=== PATIENT | male | born 1940 ===

== ENCOUNTER 2023-03-22 07:44 | Inpatient (IN) | payer OTHER ==
[~2023-03-22] VITALS: Ht 165.1 cm; Wt 70.8 kg
[2023-03-23] MEDS ORDERED: PROSCAR5 MG PO (14:50)
[2023-03-23] MEDS ORDERED: COZAAR50 MG PO (14:50)
[2023-03-23] MEDS ORDERED: ZOCOR40 MG PO (14:50)
[2023-03-23] MEDS ORDERED: LEVO-T75 MCG PO (14:50)
[2023-03-23] MEDS ORDERED: ACID REDUCER20 M1 PO (14:51)
[2023-03-31] MEDS ORDERED: INTEGRA F CAPS1 EACH PO (16:29)
[2023-03-31] MEDS ORDERED: INTESTINEX680 M1 PO (16:29)
== END 2023-03-31 19:18 | disposition home or self-care (01) | DRG 331 ==
LOC: SURH 03-28 07:35 → O/R 03-28 07:35 → SURG 03-28 08:45 → SURH 03-28 14:22 → SURG 03-28 15:45 → SURH 03-29 15:57
PROVIDERS: Surgery; ADMIT Surgery; ATTEND Surgery
PROC: 0DBP4ZZ Excision of Rectum, Percutaneous Endoscopic Approach (ICD-10-PCS; 2023-03-28)
PROC: 07BB4ZZ Excision of Mesenteric Lymphatic, Percutaneous Endoscopic Approach (ICD-10-PCS; 2023-03-28)
PROC: 0DJD8ZZ Inspection of Lower Intestinal Tract, Via Natural or Artificial Opening Endoscopic (ICD-10-PCS; 2023-03-28)
PROC: 0DTN4ZZ Resection of Sigmoid Colon, Percutaneous Endoscopic Approach (ICD-10-PCS; principal; 2023-03-28 15:45)
DX: C18.7 Malignant neoplasm of sigmoid colon (principal); R59.0 Localized enlarged lymph nodes; I10 Essential (primary) hypertension